=== PATIENT | female | born 1965 | race Caucasian/White ===

== ENCOUNTER 2019-09-18 01:33 | Emergency (ER) | payer BC ==
--- NOTE | 2019-09-18 07:52 | CT ---
PRELIMINARY REPORT/[facility]/EMERGENCY AFTER HOURS PROCEDURE EXAMS: 1. CT Head, without Contrast 2. CT Cervical Spine, without Contrast DATE/ TIME: 09/18/2019, 2:09 AM INDICATION: Trauma, fell forward with head strike. EtOH intoxication. TECHNIQUE: Axial CT imaging was performed through the head without intravenous administration of con trast. Helical CT was then performed through the cervical spine with coronal and sagittal reconstruc tions generated and reviewed. Exam was performed using one or more of the following dose reduction t echniques: automated exposure control, adjustment of the mA and/or kV according to patient size, or use of iterative reconstruction technique. COMPARISON: None. CT HEAD FINDINGS: There is no intracranial hemorrhage. There is no mass and no mass effect. There is no CT evidence of acute infarct. Imaging begins at the superior orbital level. Cranial vault alan ws no evidence of fracture. Mastoid air cells are well-aerated. Visualized sinuses are clear. Some gas is noted within venous structures presumably due to a peripheral venous catheter. IMPRESSION: CT imaging shows no acute traumatic intracranial abnormality. CT CERVICAL SPINE FINDINGS: There is no evidence of fracture. There is no malalignment. Prevertebr al and retropharyngeal soft tissues are normal. There is no apical pneumothorax. IMPRESSION: CT of the cervical spine shows no evidence of fracture. ELECTRONICALLY SIGNED BY: Surjit Smith DO September 18, 2019 2:46:18 AM CDT FINAL REPORT I agree with the preliminary report given by Dr. Surjit Smith of [facility] POS: MZA
--- NOTE | 2019-09-18 07:54 | CT ---
PRELIMINARY REPORT/[facility]/EMERGENCY AFTER HOURS PROCEDURE EXAMS: 1. CT Head, without Contrast 2. CT Cervical Spine, without Contrast DATE/ TIME: 09/18/2019, 2:09 AM INDICATION: Trauma, fell forward with head strike. EtOH intoxication. TECHNIQUE: Axial CT imaging was performed through the head without intravenous administration of con trast. Helical CT was then performed through the cervical spine with coronal and sagittal reconstruc tions generated and reviewed. Exam was performed using one or more of the following dose reduction t echniques: automated exposure control, adjustment of the mA and/or kV according to patient size, or use of iterative reconstruction technique. COMPARISON: None. CT HEAD FINDINGS: There is no intracranial hemorrhage. There is no mass and no mass effect. There is no CT evidence of acute infarct. Imaging begins at the superior orbital level. Cranial vault alan ws no evidence of fracture. Mastoid air cells are well-aerated. Visualized sinuses are clear. Some gas is noted within venous structures presumably due to a peripheral venous catheter. IMPRESSION: CT imaging shows no acute traumatic intracranial abnormality. CT CERVICAL SPINE FINDINGS: There is no evidence of fracture. There is no malalignment. Prevertebr al and retropharyngeal soft tissues are normal. There is no apical pneumothorax. IMPRESSION: CT of the cervical spine shows no evidence of fracture. ELECTRONICALLY SIGNED BY: Surjit Smith DO September 18, 2019 2:46:18 AM CDT FINAL REPORT CT CERVICAL SPINE WITH CORONAL AND SAGITTAL REFORMATIONS AND NO IV CONTRAST: I agree with the preliminary report given by Dr. Smith of [facility] POS: MZA
== END 2019-09-18 03:15 | disposition home or self-care (01) ==
LOC: ERS 01:33
DX: S00.81XA Abrasion of other part of head, initial encounter (principal); F10.129 Alcohol abuse with intoxication, unspecified; W18.11XA Fall from or off toilet without subsequent striking against object, initial encounter
CPT/HCPCS: 70450; 72125